=== PATIENT | female | born 1955 | race Hispanic/Latino ===

== ENCOUNTER 2019-01-10 05:52 | Day surgery (SDC) | payer MEDICARE ==
[2019-01-10] MEDS ORDERED: NACL 0.9% 500 ML 500 ML IV SCH (07:00)
[2019-01-10] MEDS ORDERED: ECOTRIN PO ONE (08:00)
[2019-01-10] MEDS ORDERED: HEPARIN/NS 5000 UNIT/500ML(CATH LAB) 1,000 ML IR ONE (08:17)
[2019-01-10] MEDS ORDERED: CALAN ONE ×2 (08:17→08:42)
[2019-01-10] MEDS ORDERED: HEPARIN 10,000 UNITS/10 ML ONE (08:17)
[2019-01-10] MEDS ORDERED: NITROGLYCERIN SYRINGE 3 ML ONE (08:18)
[2019-01-10] MEDS: SUBLIMAZE ONE ×2 (08:48→09:10)
[2019-01-10] MEDS: VERSED ONE ×3 (08:48→09:20)
[2019-01-10] MEDS: XYLOCAINE 2% INFILTRATI ONE ×2 (08:48→09:13)
--- NOTE | 2019-01-10 11:11 | Cardiac Catherization Report ---
INDICATION FOR PROCEDURE: A 63-year-old white female with history of longstanding diabetes mellitus of more than 40 years' duration, history of hypertension, had a stress EKG performed, which showed significant ST depressions suggestive of ischemia. The patient herself denies any chest pain suggestive of angina with her usual activities. The patient's systolic blood pressure was elevated up to 200/68. Hence scheduled for cardiac catheterization for definitive diagnosis and treatment. The patient is aware of the procedure, potential complications, and alternatives of therapy available. DESCRIPTION OF PROCEDURE: The patient was brought to the catheterization laboratory, evaluated for moderate sedation, was found to be appropriate candidate for moderate sedation, received 1 mg of IV Versed and 50 mcg of fentanyl. Subsequently, the patient was prepared in standard fashion. Local anesthesia was given in the right wrist area and followed by local anesthesia in the right wrist area, right radial artery puncture was made percutaneously without difficulty. A 5-Yoruba sheath was introduced. The patient received 5 mg of intra-arterial verapamil and 3000 units of intravenous heparin. Subsequently, a 5-Yoruba multipurpose catheter was used to obtain the angiograms of the left coronary artery, right coronary artery, and left ventriculogram done in LANG projection using hand injection in multiple views. At the end of the procedure, catheter and sheath were removed and good hemostasis was achieved with a radial band. The patient tolerated the procedure well. No untoward complications were noted. The patient's sedation started at 9:10 a.m. and ended at 9:25 a.m. The patient during this period was monitored continuously with EKG, pulse oximetry, and also hemodynamic monitoring. The patient tolerated it well. At the end of the procedure, the patient is breathing normally and communicating normally without any focal deficit. The patient was transferred to room in stable condition. Following findings were noted. HEMODYNAMICS: 1. Opening aortic pressure 146/68, left ventricular pressure 146/24. No gradient across the aortic valve. Estimated ejection fraction 65%. 2. Left ventriculogram done in LANG projection showed normal size left ventricle with normal contractility. End diastolic and end systolic function normal. Mitral regurgitation could not be evaluated because of limited amount of dye. 3. Right coronary artery is dominant vessel, arises normally from right coronary cusp, angiographically smooth with only minimal irregularities. 4. Left coronary artery is diffusely calcified. Left main is without significant disease. LAD is relatively small caliber vessel, diffusely calcified with diffuse disease throughout and the proximal part of the distal LAD shows long 80% lesion. Distal vessel itself is about 1.5-2 mm in size. Circumflex artery, nondominant vessel, shows mild smooth irregularities. The lesion in proximal part of distal LAD,which is long. LAD is relatively small caliber vessel, less than 2 mm in size. Also, there is a proximal diagonal branch, which is fairly large vessel, is diffusely diseased, small caliber, less than a millimeter in size. FINAL IMPRESSION: Normal sized left ventricle with normal contractility. RCA and circumflex with only minimal irregularities to mild disease, however LAD is diffusely diseased, diffusely calcified with proximal diagonal branch showing severe diffuse disease and also LAD itself is diffusely diseased, but significant lesion in the distal part which is a long lesion. At this time, however, the caliber of the vessel is only 1.5-2 mm in size. The patient says she is not having any chest pain suggestive of angina. Considering not significantly symptomatic and distal vessel being relatively small caliber vessel, would continue aggressive medical therapy and risk factor modification. If she becomes symptomatic, then we can consider intervention of the distal LAD. Consider repeating a stress myocardial imaging at a later date, and if there is significant amount of ischemia, we can consider intervention of the LAD, however LAD being small caliber vessel would continue medical therapy. The patient tolerated the procedure well. No untoward complications were noted. [facility]# [id number] AURA/PETE JANSEN
--- NOTE | 2019-01-10 11:20 | Short Stay Summary ---
Short Stay Documentation Date of service: 01/10/19 - History H&P: obtained from office - Allergies and Medications Current Medications: Allergies codeine Allergy (Unverified 01/10/19 05:56) Vomiting erythromycin base Allergy (Unverified 01/10/19 05:56) UNABLE TO BREATH Penicillins Allergy (Unverified 01/10/19 05:56) Rash [id number] Reductase Inhibitor Allergy (Unverified 01/10/19 05:56) SORE MUSCLES UNABLE TO MOVE Sulfa (Sulfonamide Antibiotics) Allergy (Unverified 01/10/19 05:56) Hives sulindac [From [place]] Allergy (Unverified 01/10/19 05:56) Rash Home Medications Medication Instructions Recorded Confirmed Last Taken Type Aspirin [Aspir-Low] 81 mg PO DAILY 01/10/19 01/10/19 01/09/19 History Ezetimibe [Zetia] 10 mg PO QDAY 01/10/19 01/10/19 01/10/19 06:40 History Insulin Aspart [NovoLOG Flexpen] 3 - 8 units SQ TIDWM 01/10/19 01/10/19 01/09/19 History Insulin Detemir [Levemir Flextouch] 16 units SQ BID 01/10/19 01/10/19 01/09/19 21:00 History Metoprolol [Lopressor] 25 mg PO DAILY 01/10/19 01/10/19 01/10/19 06:40 History Active Medications Sodium Chloride (Nacl 0.9% 500 Ml) 500 mls @ 50 mls/hr IV DIRECT CASA Stop: 01/10/19 16:59 Last Admin: 01/10/19 08:02 Dose: 50 mls/hr Documented by: - Brief post op/procedure progress note Date of procedure: 01/10/19 Pre-op diagnosis: cp Post-op diagnosis: other (CAD) Procedure: LHC - see dictated cath report Anesthesia: local Estimated blood loss: none Condition: stable - Disposition Condition at discharge: Good Disposition: [id number] TO HOME OR SELFCARE - Discharge Diagnoses (1) CAD (coronary artery disease) Status: Chronic (2) Diabetes Status: Chronic (3) HTN (hypertension) Status: Chronic Short Stay Discharge Plan Activity: advance as tolerated Diet: low fat, low cholesterol, low salt, diabetic Wound: open to air, keep clean and dry, per your surgeon's advice Follow up with: JONG GILLIAM MD [Primary Care Provider] - 7 Days
[2019-01-10 12:40] VITALS: BP 123/54
== END 2019-01-10 13:40 | disposition home or self-care (01) ==
LOC: CATHLABREC 05:52
PROVIDERS: ATTEND Internal Medicine
DX: I25.10 Atherosclerotic heart disease of native coronary artery without angina pectoris (principal); I10 Essential (primary) hypertension; E11.9 Type 2 diabetes mellitus without complications; E78.00 Pure hypercholesterolemia, unspecified; M81.0 Age-related osteoporosis without current pathological fracture; Z79.899 Other long term (current) drug therapy; Z79.82 Long term (current) use of aspirin; Z79.84 Long term (current) use of oral hypoglycemic drugs; Z88.5 Allergy status to narcotic agent; Z88.2 Allergy status to sulfonamides; Z88.0 Allergy status to penicillin; Z98.51 Tubal ligation status; Z90.710 Acquired absence of both cervix and uterus; Z98.890 Other specified postprocedural states; Z88.8 Allergy status to other drugs, medicaments and biological substances
CPT/HCPCS: 82962; 93005; 93010; 93458; 99156; C1894; J1644; J2250; J3010; J7040; Q9967